=== PATIENT | female | born 1990 | race Hispanic/Latino ===

== ENCOUNTER 2018-07-18 11:36 | Observation (INO) | payer MEDICAID ==
[2018-07-18 12:02] LABS: APPEARANCE,URINE Cloudy (CLEAR); BILIRUBIN,URINE Negative (NEGATIVE); COLOR,URINE Dark Yellow (YELLOW); GLUCOSE, URINE (UA) Negative (NEGATIVE); KETONES,URINE Trace mg/dL (NEGATIVE); LEUKOCYTE ESTERASE ,URINE Moderate (NEGATIVE); NITRATE,URINE Negative (NEGATIVE); OCCULT BLOOD,URINE Negative (NEGATIVE); PROTEIN,URINE POS 1+ (NEGATIVE)
[2018-07-18 12:27] LABS: BASOPHILS % (AUTO) 0.7 % (0.0-5.0); EOSINOPHILS % (AUTO) 0.6 % (0.0-8.0); HEMATOCRIT 34.8 % (36-48); LYMPHOCYTES % (AUTO) 17.1 % (21.0-51.0); MEAN CORPUSCULAR HEMOGLOBIN 27.7 pg (27.0-33.0); MEAN CORPUSCULAR HGB CONC 33.3 g/dL (32.0-36.0); MEAN CORPUSCULAR VOLUME 83.3 fL (79-99); MONOCYTES % (AUTO) 5.3 % (3.0-13.0); NEUTROPHILS % (AUTO) 76.3 % (40.0-77.0); PLATELET COUNT (AUTO) 302 K/uL (130-400); RED BLOOD CELL COUNT(AUTO) 4.18 MIL/uL (4.00-5.50); RED CELL DISTRIBUTION WIDTH 13.4 % (11.0-15.5); WHITE BLOOD COUNT (AUTO) 11.5 K/uL (4.8-10.8)
[2018-07-18 12:28] LABS: BACTERIA,URINE Many /HPF (None Seen); MUCUS,URINE Few LPF (None Seen); RBC,URINE 0-1 /HPF (0-1); SQUAMOUS EPITHELIAL CELL,UR Moderate /HPF (0-2); WBC,URINE 51-100 /HPF (0-1)
[2018-07-18 12:35] LABS: CREATININE 0.7 mg/dL (0.5-1.5); POTASSIUM 3.8 mmol/L (3.5-5.1)
[2018-07-18 12:39] LABS: ALBUMIN 2.6 g/dL (3.5-5.0); BILIRUBIN,TOTAL 0.3 mg/dL (0.2-1.0); TOTAL PROTEIN, SERUM 7.4 g/dL (6.0-8.3)
[2018-07-18] MEDS ORDERED: SODIUM CHLORIDE 0.9% 1000ML 1,000 ML IV ONE (13:08)
[2018-07-18] MEDS ORDERED: CEFTRIAXONE SODIUM 1 GM ONE (13:08)
== END 2018-07-18 16:05 | disposition home or self-care (01) ==
LOC: EDH 11:36 → LDH 14:35
PROVIDERS: ADMIT Obstetrics & Gynecology; ATTEND Obstetrics & Gynecology
DX: O23.43 Unspecified infection of urinary tract in pregnancy, third trimester (principal); Z3A.30 30 weeks gestation of pregnancy
CPT/HCPCS: 36415; 80053; 81001; 81025; 82948; 85025; 93005; 99285; G0378; J0696; J7030

== ENCOUNTER 2018-08-19 16:00 | Observation (INO) | payer MEDICAID ==
[~2018-08-19] VITALS: Ht 157.5 cm; Wt 113.9 kg
[2018-08-19 16:41] LABS: BILIRUBIN,URINE Negative (NEGATIVE); COLOR,URINE Yellow (YELLOW); GLUCOSE, URINE (UA) Negative (NEGATIVE); KETONES,URINE Trace mg/dL (NEGATIVE); LEUKOCYTE ESTERASE ,URINE Small (NEGATIVE); NITRATE,URINE Negative (NEGATIVE); OCCULT BLOOD,URINE Negative (NEGATIVE); PROTEIN,URINE Negative (NEGATIVE)
[2018-08-19] MEDS ORDERED: LACTATED RINGERS 1000ML 1,000 ML IV SCH (16:45)
[2018-08-19 16:47] LABS: APPEARANCE,URINE SLIGHTLY CLOUDY (CLEAR)
[2018-08-19 16:49] LABS: BACTERIA,URINE Few /HPF (None Seen); CALCIUM OXALATE CRYSTALS,UR Few /LPF (None Seen); MUCUS,URINE Few LPF (None Seen); RBC,URINE 0-1 /HPF (0-1); SQUAMOUS EPITHELIAL CELL,UR Few /HPF (0-2)
[2018-08-19 16:51] LABS: URIC ACID CRYSTALS,URINE Rare /LPF (None Seen)
== END 2018-08-19 17:53 | disposition home or self-care (01) ==
LOC: LDH 16:00
PROVIDERS: ADMIT Obstetrics & Gynecology; ATTEND Obstetrics & Gynecology
DX: O26.893 Other specified pregnancy related conditions, third trimester (principal); R10.9 Unspecified abdominal pain; O62.9 Abnormality of forces of labor, unspecified; Z3A.35 35 weeks gestation of pregnancy
CPT/HCPCS: 81001; G0378 ×2; J7120; 96360

== ENCOUNTER 2018-09-10 11:36 | Observation (INO) | payer MEDICAID ==
[2018-09-10 12:13] LABS: APPEARANCE,URINE Clear (CLEAR); BILIRUBIN,URINE Negative (NEGATIVE); COLOR,URINE Yellow (YELLOW); GLUCOSE, URINE (UA) Negative (NEGATIVE); KETONES,URINE Negative (NEGATIVE); LEUKOCYTE ESTERASE ,URINE Large (NEGATIVE); NITRATE,URINE Negative (NEGATIVE); OCCULT BLOOD,URINE Negative (NEGATIVE); PROTEIN,URINE Negative (NEGATIVE)
[2018-09-10 12:37] LABS: BACTERIA,URINE Many /HPF (None Seen); MUCUS,URINE Rare LPF (None Seen); SQUAMOUS EPITHELIAL CELL,UR Few /HPF (0-2); WBC,URINE 51-100 /HPF (0-1)
== END 2018-09-10 13:15 | disposition home or self-care (01) ==
LOC: EDH 11:36 → LDH 11:37
PROVIDERS: ADMIT Obstetrics & Gynecology; ATTEND Obstetrics & Gynecology
DX: O26.893 Other specified pregnancy related conditions, third trimester (principal); R10.2 Pelvic and perineal pain; M54.5 Low back pain; O99.613 Diseases of the digestive system complicating pregnancy, third trimester; K59.00 Constipation, unspecified; Z3A.38 38 weeks gestation of pregnancy
CPT/HCPCS: 81001; 99284; G0378 ×2

== ENCOUNTER 2018-09-12 16:52 | Inpatient (IN) | payer MEDICAID | END 2018-09-14 15:25 | disposition home or self-care (01) | LOC: WSH 09-13 07:15 → LDH 16:52 | PROC: 10E0XZZ Delivery of Products of Conception, External Approach (ICD-10-PCS; principal; ~2018-09-12) | PROC: 3E0P7VZ Introduction of Hormone into Female Reproductive, Via Natural or Artificial Opening (ICD-10-PCS; ~2018-09-12) | DX: O80 Encounter for full-term uncomplicated delivery (principal); Z37.0 Single live birth; Z3A.39 39 weeks gestation of pregnancy ==

== ENCOUNTER 2020-09-29 13:42 | Inpatient (IN) | payer MEDICAID ==
[~2020-09-29] VITALS: Ht 157.5 cm; Wt 117.5 kg
[2020-09-29 14:15] VITALS: BP 118/65
[2020-09-29] MEDS: LACTATED RINGERS 1000ML 1,000 ML IV SCH ×3 (14:57→22:41)
[2020-09-29 15:09] LABS: APPEARANCE,URINE SL CLOUDY (CLEAR); BILIRUBIN,URINE NEGATIVE (NEGATIVE); COLOR,URINE YELLOW (YELLOW); GLUCOSE, URINE (UA) NEGATIVE (NEGATIVE); KETONES,URINE 15 mg/dL (NEGATIVE); LEUKOCYTE ESTERASE ,URINE LARGE (NEGATIVE); NITRATE,URINE NEGATIVE (NEGATIVE); OCCULT BLOOD,URINE NEGATIVE (NEGATIVE); PROTEIN,URINE NEGATIVE (NEGATIVE); UROBILINOGEN,URINE 0.2 mg/dL (0.2-1.0)
[2020-09-29 15:25] LABS: BACTERIA,URINE Few /HPF (None Seen); MUCUS,URINE Few LPF (None Seen); RBC,URINE 0-1 /HPF (0-1); SQUAMOUS EPITHELIAL CELL,UR Moderate /HPF (0-2)
[2020-09-29] MEDS ORDERED: LACTATED RINGERS 1000ML 1,000 ML IV PRN (17:15)
[2020-09-29] MEDS ORDERED: OXYTOCIN-LR 20 UNITS/1000 ML 1,000 ML IV SCH (17:15)
[2020-09-29] MEDS ORDERED: NALOXONE HCL 0.4 MG/1 ML ML IV PRN (17:15)
[2020-09-29] MEDS ORDERED: PROMETHAZINE HCL 25 MG/ML 1ML AMPULE IM PRN (17:15)
[2020-09-29] MEDS ORDERED: EPHEDRINE SULFATE 50 MG/ML AMPULE IVP PRN (17:15)
[2020-09-29] MEDS ORDERED: LACTATED RINGERS 500 ML 500 ML IV PRN (17:15)
[2020-09-29] MEDS ORDERED: BUTORPHANOL TARTRATE 2 MG/ML IVP PRN (17:15)
[2020-09-29] MEDS ORDERED: ROPIVACAINE 0.2% 100ML VIAL 100 ML EP SCH (17:15)
[2020-09-29 17:17] LABS: HEMATOCRIT 32.4 % (36-48); MEAN CORPUSCULAR HEMOGLOBIN 23.2 pg (27.0-33.0); MEAN CORPUSCULAR HGB CONC 30.6 g/dL (32.0-36.0); MEAN CORPUSCULAR VOLUME 76.1 fL (79-99); PLATELET COUNT (AUTO) 250 K/uL (130-400); RED BLOOD CELL COUNT(AUTO) 4.26 MIL/uL (4.00-5.50); RED CELL DISTRIBUTION WIDTH 14.9 % (11.0-15.5)
[2020-09-30] MEDS ORDERED: OXYTOCIN-LR 20 UNITS/1000 ML 1,000 ML IV SCH ×2 (06:00→10:15)
[2020-09-30] MEDS: LACTATED RINGERS 1000ML 1,000 ML IV SCH (06:09)
[2020-09-30] MEDS ORDERED: LIDOCAINE HCL 1% 10 ML VIAL ONE (08:44)
[2020-09-30] MEDS ORDERED: CEFAZOLIN SODIUM 1 GM VIAL ONE (09:57)
[2020-09-30] MEDS ORDERED: BENZOCAINE/LANOLIN/ALOE VERA 60 ML AEROSOL TP PRN (10:15)
[2020-09-30] MEDS ORDERED: DIPH,PERTUSS(ACELL),TET VAC/PF 0.5 ML VIAL IM PRN (10:15)
[2020-09-30] MEDS ORDERED: WITCH HAZEL 1 PAD TP PRN (10:15)
[2020-09-30] MEDS ORDERED: ACETAMINOPHEN WITH CODEINE 1 TAB TAB PO PRN (10:15)
[2020-09-30] MEDS ORDERED: LANOLIN 30GM OINTMENT TP PRN (10:15)
[2020-09-30] MEDS ORDERED: ACETAMINOPHEN 325 MG TAB PO PRN (10:15)
[2020-09-30] MEDS ORDERED: MEASLES/MUMPS/RUBELLA VACCINE, LIVE 0.5 ML/VIAL SQ PRN (10:15)
[2020-09-30] MEDS: IBUPROFEN 600 MG TABLET PO PRN ×2 (13:00→21:05)
[2020-09-30 16:08] VITALS: BP 98/56
[2020-09-30 20:30] VITALS: BP 106/59
[2020-09-30] MEDS: DOCUSATE SODIUM 100 MG CAP PO SCH (21:05)
[2020-10-01] VITALS (7 sets, daily range): BP systolic 102–117; BP diastolic 56–72
[2020-10-01] MEDS ORDERED: PREN1TAB80 PO (02:15)
[2020-10-01] MEDS: CITRIC ACID/SODIUM CITRATE 30 ML UDCUP PO SCH (03:21)
[2020-10-01] MEDS: IBUPROFEN 600 MG TABLET PO PRN ×4 (03:22→23:18)
[2020-10-01 07:16] LABS: HEPATITIS Bs ANTIGEN SCREEN P Negative (Negative)
[2020-10-01] MEDS: DOCUSATE SODIUM 100 MG CAP PO SCH ×2 (08:06→20:51)
[2020-10-01 12:41] LABS: RAPID PLASMA REAGIN NONREACTIVE (NONREACTIVE)
[2020-10-02] MEDS: CITRIC ACID/SODIUM CITRATE 30 ML UDCUP PO SCH (02:30)
[2020-10-02 03:16] VITALS: BP 118/59
[2020-10-02 07:06] VITALS: BP 90/50
[2020-10-02] MEDS: DOCUSATE SODIUM 100 MG CAP PO SCH (08:43)
[2020-10-02] MEDS: IBUPROFEN 600 MG TABLET PO PRN (08:44)
[2020-10-02 11:17] VITALS: BP 91/56
== END 2020-10-02 14:50 | disposition home or self-care (01) | DRG 560 ==
LOC: EDH 13:42 → OBSVTOIN 13:43 → LDH 13:43 → WSH 09-30 13:16
PROVIDERS: ADMIT Obstetrics & Gynecology; ATTEND Obstetrics & Gynecology
PROC: 10E0XZZ Delivery of Products of Conception, External Approach (ICD-10-PCS; principal; 2020-09-30)
PROC: 0KQM0ZZ Repair Perineum Muscle, Open Approach (ICD-10-PCS; 2020-09-30)
PROC: 3E0R3BZ Introduction of Anesthetic Agent into Spinal Canal, Percutaneous Approach (ICD-10-PCS; 2020-09-30)
PROC: 00HU33Z Insertion of Infusion Device into Spinal Canal, Percutaneous Approach (ICD-10-PCS; 2020-09-30)
PROC: 3E0234Z Introduction of Serum, Toxoid and Vaccine into Muscle, Percutaneous Approach (ICD-10-PCS; 2020-09-30)
PROC: 3E0134Z Introduction of Serum, Toxoid and Vaccine into Subcutaneous Tissue, Percutaneous Approach (ICD-10-PCS; 2020-09-30)
DX: O70.1 Second degree perineal laceration during delivery (principal); Z3A.38 38 weeks gestation of pregnancy; Z37.0 Single live birth; Z23 Encounter for immunization
CPT/HCPCS: 36415; 81001; 85027; 86592; 86701; 86850; 86900; 86901; 87088; 87340; 87390; A4314; G0378; J0595; J0690; J2590; J2795; J3490; J7120